=== PATIENT | female | born 1940 | race Caucasian/White ===

== ENCOUNTER 2022-04-15 23:46 | Emergency (ER) | payer MEDICARE, OTHER ==
[~2022-04-15] VITALS: Ht 154.9 cm; Wt 72.7 kg
[2022-04-16 01:00] VITALS: BP 153/71
== END 2022-04-16 01:33 | disposition home or self-care (01) ==
LOC: M ED 23:46
DX: I83.891 Varicose veins of right lower extremity with other complications (principal); Z88.0 Allergy status to penicillin; Z79.02 Long term (current) use of antithrombotics/antiplatelets; Z79.01 Long term (current) use of anticoagulants; Z79.891 Long term (current) use of opiate analgesic